=== PATIENT | male | born 1975 | race Caucasian/White ===

== ENCOUNTER 2021-06-26 00:14 | Inpatient (IN) ==
[2021-06-26 00:47] LABS: Appearance Urine Clear (Clear); Bacteria Urine Automated Negative (Negative); Bilirubin Urine Negative (Negative); Blood Urine Negative (Negative); Color Urine Dark Yellow; Epithelial Cell Urine Auto >30 /lpf (0-5); Glucose Urine UA Negative (Negative); Ketones Urine Trace (Negative); Leukocyte Esterase Urine Negative (Negative); Nitrite Urine Negative (Negative); Protein Urine Trace (Negative); RBC Urine Automated 0-4 /hpf (0-4); Specific Gravity Urine 1.031 (1.000-1.030); Urobilinogen Urine Negative (Negative)
[2021-06-26 00:56] LABS: Basophils # (auto) 0.04 K/uL (0-0.2); Basophils % (auto) 0.3 %; Eosinophils # (auto) 0.13 K/uL (0-0.5); Eosinophils % (auto) 0.9 %; Hematocrit (blood only) 50.3 % (42-52); Hemoglobin 15.8 g/dL (14.0-18.0); Immature Granulocytes # (auto) 0.05 K/uL (0.00-0.02); Immature Granulocytes % (auto) 0.4 %; Lymphocytes # (auto) 3.51 K/uL (1.2-3.4); Lymphocytes % (auto) 25.2 %; Mean Corpuscular Hemoglobin 27.4 pg (25-34); Mean Corpuscular Hgb Conc 31.4 g/dL (32-36); Mean Corpuscular Volume 87.2 fL (80-100); Monocytes # (auto) 1.06 K/uL (0.11-0.59); Monocytes % (auto) 7.6 %; Neutrophils # (auto) 9.16 K/uL (1.4-6.5); Neutrophils % (auto) 65.6 %; Platelet Count 371 K/uL (130-400); RDW Coefficient of Variation 14.7 % (11.5-14.5); RDW Standard Deviation 46.9 fL (36.4-46.3); Red Blood Count 5.77 M/uL (4.7-6.1); White Blood Count 13.95 K/uL (4.8-10.8)
[2021-06-26 01:06] LABS: Amphetamines+Metham, Urine Neg (Neg); Barbiturates, Urine Neg (Neg); Benzodiazepine, Urine Neg (Neg); Cocaine, Urine Neg (Neg); MDMA (Ecstacy), Urine Neg (Neg); Methadone, Urine Neg (Neg); Opiate, Urine Neg (Neg); Phencyclidine, Urine Neg (Neg)
[2021-06-26 01:15] LABS: Albumin Level 4.2 gm/dl (3.4-5.0); BUN Creatinine Ratio 15.8 (10-20); Calcium 9.2 mg/dl (8.5-10.1); Creatinine Clr Calc Pharmacy 93.3 ml/min; Est GFR (African American) 69.2 ml/min; Est GFR (Non-African American) 59.7 ml/min; Potassium 3.7 mmol/L (3.5-5.1)
[2021-06-26 01:26] LABS: Bilirubin,Total 0.5 mg/dl (0.2-1); Globulin 4.3 gm/dl (2.5-4.0); Thyroid Stimulating Hormone 4.48 uIu/ml (0.300-4.500); Total Protein 8.5 gm/dl (6.4-8.2)
[2021-06-26 01:33] LABS: Acetaminophen < 2 ug/ml (10-30); Salicylate < 1.7 mg/dl (2.8-20)
[2021-06-26] MEDS: OLANZapine ZYDIS 5 MG ORALLY DIS. TAB PO SCH (04:11)
--- NOTE | 2021-06-26 06:52 | Emergency Department Note ---
History of Present Illness General Chief complaint: Mental Health Evaluation Stated complaint: 302 Time Seen by Provider: 06/26/21 01:09 Source: patient, RN notes reviewed and police Mode of arrival: other (police) Limitations: no limitations History of Present Illness Provider complaint: MHMR This patient is a 45-year-old male who presents to the emergency department with police after being found lying in several yards. The patient states he was "resting his body" after walking over mountains and [place] in an attempt to anger God. He states God promised him that he would find the woman that he would when he went to the front of the [employer]. This did not occur. Patient apparently drove here from [place], ran out of gas and money. He signed over his car and gave the keys to the gas welder. Patient states he is "genetically related to the data processing equipment repairer of the [employer]" because his " grandmother's last name was Dwayne." When asked if the patient felt that he may hurt the mental nights, he stated "no I would be honored to be a part of them." He speaks of the beautiful horses and buggies. Patient states he was in search of the [employer] and feels he was on his admission this direction to accomplish the mission that God had sent him on. The patient denies any significant pain. He states he used to have a herniated disc in his back but he healed that by praying. He states his heels hurt a bit because of all of the walking he did "over [place] and [place]." Patient denies any alcohol or substance abuse. Home Medications Medication Instructions Recorded Confirmed Type No Known Home Medications 06/26/21 06/26/21 History Allergies Allergy/AdvReac Type Severity Reaction Status Date / Time banana AdvReac Mild Abdominal Verified 06/26/21 00:58 Pain Past Med/Surg History Medical History (Updated 06/26/21 @ 07:05 by Kendra Vazquez MD) Schizophrenia Social History Smoking Status: Current every day smoker Preferred Language: Tajik Feels Safe at Home: Yes and No Review of Systems Unobtainable due to mental health condition (Patient is tangential and history/review of systems is unreliable. Refer to HPI) Physical Exam Vital Signs Vital Signs - 24 hr 06/26/21 00:16 06/26/21 01:17 Temperature 36.5 C Temperature Source Oral Pulse Rate 85 Pulse Rate [Right Finger] 78 Respiratory Rate 18 16 Respiratory Effort / Characteristics Non-Labored Respiratory Depth Normal Blood Pressure 197/108 H Blood Pressure [Left Arm] 126/71 Blood Pressure Mean 137 Blood Pressure Mean [Left Arm] 89 Blood Pressure Position Sitting Pulse Oximetry 97 96 Oxygen Delivery Method Room Air Room Air Sepsis Recent Fever Within 48 Hours No Sepsis New/Unexplained Change in Mental Status N/A Sepsis Action Taken by Nursing No Action Required Vital signs reviewed. General: Well-appearing 45-year-old male, in no significant distress. HEENT: No scleral icterus, PERRLA, neck supple. Atraumatic. Cardiovascular: Regular rate and rhythm, no extra sounds. Pulmonary: Clear to auscultation bilaterally, normal work of breathing. Abdomen: Soft, obese, nontender, nondistended, positive bowel sounds. Musculoskeletal: Atraumatic, no peripheral edema. Calluses noted to the bilateral feet Neurologic: Patient awake alert and answers most questions, but is unable to give a focused answer. Moves all 4 extremities equally. Cranial nerves II through XII are grossly intact. Speech is clear. Psych: Negative HI, negative SI Skin: Warm, dry, no rash Course Administered Medications Olanzapine (Olanzapine Zydis 5 Mg Orally Dis. Tab) 5 mg PO HS RAUDEL Stop: 07/26/21 20:59 Last Admin: 06/26/21 04:11 Dose: 5 mg Documented by: [id number] Medical Decision Making Differential Diagnosis Mood disorder, infection, hypoglycemia, electrolyte abnormalities, cardiac sources, intracerebral event, toxicologic, trauma, neurologic, as well as other pathologies. Medical Records Attestation: I reviewed the patient's medical records. Home Medications Current Medication List: was personally reviewed by me Laboratory Data Attestation: I reviewed the patient's lab results. Result diagrams: 06/26/21 00:35 06/26/21 00:35 Lab Results 06/26/21 06/26/21 06/26/21 Range/Units 00:28 00:28 00:35 WBC 13.95 H (4.8-10.8) K/uL RBC 5.77 (4.7-6.1) M/uL Hgb 15.8 (14.0-18.0) g/dL Hct 50.3 (42-52) % MCV 87.2 (80-100) fL MCH 27.4 (25-34) pg MCHC 31.4 L (32-36) g/dL RDW Std Deviation 46.9 H (36.4-46.3) fL RDW Coeff of Carline 14.7 H (11.5-14.5) % Plt Count 371 (130-400) K/uL MPV 10.0 (7.4-10.4) fL Immature Gran % (Auto) 0.4 % Neut % (Auto) 65.6 % Lymph % (Auto) 25.2 % Converse % (Auto) 7.6 % Eos % (Auto) 0.9 % Baso % (Auto) 0.3 % Neut # (Auto) 9.16 H (1.4-6.5) K/uL Lymph # (Auto) 3.51 H (1.2-3.4) K/uL Converse # (Auto) 1.06 H (0.11-0.59) K/uL Eos # (Auto) 0.13 (0-0.5) K/uL Baso # (Auto) 0.04 (0-0.2) K/uL Immature Gran # (Auto) 0.05 H (0.00-0.02) K/uL Sodium (136-145) mmol/L Potassium (3.5-5.1) mmol/L Chloride (98-107) mmol/L Carbon Dioxide (21-32) mmol/L Anion Gap (3-11) BUN (7-18) mg/dl Creatinine (0.6-1.4) mg/dl Est Cr Clr Drug Dosing ml/min Est GFR ( Amer) ml/min Est GFR (Non-Af Amer) ml/min BUN/Creatinine Ratio (10-20) Glucose (70-99) mg/dl Calcium (8.5-10.1) mg/dl Total Bilirubin (0.2-1) mg/dl AST (15-37) U/L ALT (12-78) U/L Alkaline Phosphatase (45-117) U/L Total Creatine Kinase (39-308) U/L Total Protein (6.4-8.2) gm/dl Albumin (3.4-5.0) gm/dl Globulin (2.5-4.0) gm/dl Albumin/Globulin Ratio (0.9-2) TSH (0.300-4.500) uIu/ml Urine Color Dark Yellow Urine Appearance Clear (Clear) Urine pH 5.0 (4.5-7.5) Ur Specific Woodlyn 1.031 H (1.000-1.030) Urine Protein Trace H (Negative) Urine Glucose (UA) Negative (Negative) Urine Ketones Trace H (Negative) Urine Blood Negative (Negative) Urine Nitrite Negative (Negative) Urine Bilirubin Negative (Negative) Urine Urobilinogen Negative (Negative) Ur Leukocyte Esterase Negative (Negative) Urine WBC (Auto) 5-10 H (0-5) /hpf Urine RBC (Auto) 0-4 (0-4) /hpf U Hyaline Cast (Auto) 1-5 (0-5) /lpf U Epithel Cells (Auto) >30 H (0-5) /lpf Urine Bacteria (Auto) Negative (Negative) Salicylates (2.8-20) mg/dl Urine Opiates Screen Neg (Neg) Ur Methadone, Qual Neg (Neg) Acetaminophen (10-30) ug/ml Urine Barbiturates Neg (Neg) Ur Phencyclidine (PCP) Neg (Neg) U Amphetamin/Meth Scrn Neg (Neg) MDMA (Ecstasy) Screen Neg (Neg) U Benzodiazepines Scrn Neg (Neg) Ur Cocaine Metabolite Neg (Neg) U Marijuana (THC) Screen Neg (Neg) Ethyl Alcohol mg/dL (0-3) mg/dl COVID-19 Eval Order SARS-CoV-2, RNA, NAAT (NEGATIVE) 06/26/21 06/26/21 06/26/21 Range/Units 00:35 00:35 00:35 WBC (4.8-10.8) K/uL RBC (4.7-6.1) M/uL Hgb (14.0-18.0) g/dL Hct (42-52) % MCV (80-100) fL MCH (25-34) pg MCHC (32-36) g/dL RDW Std Deviation (36.4-46.3) fL RDW Coeff of Carline (11.5-14.5) % Plt Count (130-400) K/uL MPV (7.4-10.4) fL Immature Gran % (Auto) % Neut % (Auto) % Lymph % (Auto) % Converse % (Auto) % Eos % (Auto) % Baso % (Auto) % Neut # (Auto) (1.4-6.5) K/uL Lymph # (Auto) (1.2-3.4) K/uL Converse # (Auto) (0.11-0.59) K/uL Eos # (Auto) (0-0.5) K/uL Baso # (Auto) (0-0.2) K/uL Immature Gran # (Auto) (0.00-0.02) K/uL Sodium 140 (136-145) mmol/L Potassium 3.7 (3.5-5.1) mmol/L Chloride 108 H (98-107) mmol/L Carbon Dioxide 22 (21-32) mmol/L Anion Gap 10.0 (3-11) BUN 22 H (7-18) mg/dl Creatinine 1.41 H (0.6-1.4) mg/dl Est Cr Clr Drug Dosing 93.3 ml/min Est GFR ( Amer) 69.2 ml/min Est GFR (Non-Af Amer) 59.7 ml/min BUN/Creatinine Ratio 15.8 (10-20) Glucose 113 H (70-99) mg/dl Calcium 9.2 (8.5-10.1) mg/dl Total Bilirubin 0.5 (0.2-1) mg/dl AST 24 (15-37) U/L ALT 41 (12-78) U/L Alkaline Phosphatase 88 (45-117) U/L Total Creatine Kinase 430 H (39-308) U/L Total Protein 8.5 H (6.4-8.2) gm/dl Albumin 4.2 (3.4-5.0) gm/dl Globulin 4.3 H (2.5-4.0) gm/dl Albumin/Globulin Ratio 1.0 (0.9-2) TSH 4.480 (0.300-4.500) uIu/ml Urine Color Urine Appearance (Clear) Urine pH (4.5-7.5) Ur Specific Woodlyn (1.000-1.030) Urine Protein (Negative) Urine Glucose (UA) (Negative) Urine Ketones (Negative) Urine Blood (Negative) Urine Nitrite (Negative) Urine Bilirubin (Negative) Urine Urobilinogen (Negative) Ur Leukocyte Esterase (Negative) Urine WBC (Auto) (0-5) /hpf Urine RBC (Auto) (0-4) /hpf U Hyaline Cast (Auto) (0-5) /lpf U Epithel Cells (Auto) (0-5) /lpf Urine Bacteria (Auto) (Negative) Salicylates < 1.7 L (2.8-20) mg/dl Urine Opiates Screen (Neg) Ur Methadone, Qual (Neg) Acetaminophen < 2 L (10-30) ug/ml Urine Barbiturates (Neg) Ur Phencyclidine (PCP) (Neg) U Amphetamin/Meth Scrn (Neg) MDMA (Ecstasy) Screen (Neg) U Benzodiazepines Scrn (Neg) Ur Cocaine Metabolite (Neg) U Marijuana (THC) Screen (Neg) Ethyl Alcohol mg/dL < 3.0 (0-3) mg/dl COVID-19 Eval Order SARS-CoV-2, RNA, NAAT (NEGATIVE) 06/26/21 06/26/21 Range/Units 01:16 01:16 WBC (4.8-10.8) K/uL RBC (4.7-6.1) M/uL Hgb (14.0-18.0) g/dL Hct (42-52) % MCV (80-100) fL MCH (25-34) pg MCHC (32-36) g/dL RDW Std Deviation (36.4-46.3) fL RDW Coeff of Carline (11.5-14.5) % Plt Count (130-400) K/uL MPV (7.4-10.4) fL Immature Gran % (Auto) % Neut % (Auto) % Lymph % (Auto) % Converse % (Auto) % Eos % (Auto) % Baso % (Auto) % Neut # (Auto) (1.4-6.5) K/uL Lymph # (Auto) (1.2-3.4) K/uL Converse # (Auto) (0.11-0.59) K/uL Eos # (Auto) (0-0.5) K/uL Baso # (Auto) (0-0.2) K/uL Immature Gran # (Auto) (0.00-0.02) K/uL Sodium (136-145) mmol/L Potassium (3.5-5.1) mmol/L Chloride (98-107) mmol/L Carbon Dioxide (21-32) mmol/L Anion Gap (3-11) BUN (7-18) mg/dl Creatinine (0.6-1.4) mg/dl Est Cr Clr Drug Dosing ml/min Est GFR ( Amer) ml/min Est GFR (Non-Af Amer) ml/min BUN/Creatinine Ratio (10-20) Glucose (70-99) mg/dl Calcium (8.5-10.1) mg/dl Total Bilirubin (0.2-1) mg/dl AST (15-37) U/L ALT (12-78) U/L Alkaline Phosphatase (45-117) U/L Total Creatine Kinase (39-308) U/L Total Protein (6.4-8.2) gm/dl Albumin (3.4-5.0) gm/dl Globulin (2.5-4.0) gm/dl Albumin/Globulin Ratio (0.9-2) TSH (0.300-4.500) uIu/ml Urine Color Urine Appearance (Clear) Urine pH (4.5-7.5) Ur Specific Woodlyn (1.000-1.030) Urine Protein (Negative) Urine Glucose (UA) (Negative) Urine Ketones (Negative) Urine Blood (Negative) Urine Nitrite (Negative) Urine Bilirubin (Negative) Urine Urobilinogen (Negative) Ur Leukocyte Esterase (Negative) Urine WBC (Auto) (0-5) /hpf Urine RBC (Auto) (0-4) /hpf U Hyaline Cast (Auto) (0-5) /lpf U Epithel Cells (Auto) (0-5) /lpf Urine Bacteria (Auto) (Negative) Salicylates (2.8-20) mg/dl Urine Opiates Screen (Neg) Ur Methadone, Qual (Neg) Acetaminophen (10-30) ug/ml Urine Barbiturates (Neg) Ur Phencyclidine (PCP) (Neg) U Amphetamin/Meth Scrn (Neg) MDMA (Ecstasy) Screen (Neg) U Benzodiazepines Scrn (Neg) Ur Cocaine Metabolite (Neg) U Marijuana (THC) Screen (Neg) Ethyl Alcohol mg/dL (0-3) mg/dl COVID-19 Eval [facility] SARS-CoV-2, RNA, NAAT NEGATIVE (NEGATIVE) Blood Pressure Blood Pressure Findings: Normal blood pressure Blood Pressure Disposition: did not require urgent referral MDM Narrative This patient was evaluated and appeared to be in no significant distress. He was medically evaluated and WBC is mildly elevated. This is likely a stress reaction from a long night of walking. Patient's total CK is also slightly elevated but he does not meet criteria for rhabdomyolysis. Patient was given 5 mg of olanzapine ODT. He was sleeping comfortably and was cooperative. Patient is tolerating p.o. food and fluids. The patient is on a 302 warrant and will require inpatient psychiatric care. Case has been signed out to Dr. Rico at the change of shift awaiting final disposition. Impression & Plan Psychosis Discharge Plan Visit Data Chief Complaint: Mental Health Evaluation Stated Complaint: 302 ED Provider: Kendra Vazquez Discharge Problem: Psychosis Forms Stand Alone Forms: [facility], Suicide Prevention Resources Prescriptions Prescriptions: No Action No Known Home Medications RF: 0 Referrals Referrals: PCP,NO [Primary Care Provider] - Discharge Problem: Psychosis Qualifiers: Psychosis type: schizophrenia Schizophrenia type: unspecified Qualified Code(s): F20.9 - Schizophrenia, unspecified
--- NOTE | 2021-06-26 07:33 | Emergency Department Note ---
ED Visit Note This patient was signed to me by Dr. Vazquez at shift change. The patient had 302 petition that have been signed off and the patient been previously medically cleared. The patient has schizophrenia and was given Zyprexa overnight and was sleeping. When he woke up he was getting mildly agitated so I did order Zyprexa after discussing with the nurse. A couple hours later he was getting more agitated and apparently did not take the Zyprexa. The nurse tell me they could not get him to take medications. I did order Haldol 10 mg IM and Ativan 2 mg IM as I was concerned about he was trying to leave and seemed agitated. When they went to give him the meds the patient was asleep in bed and did not receive the meds. I checked on him multiple times after this and he remains asleep and noncombative. He will be signed out to Dr. Reddy as a bed search continues he may ultimately need medications for agitation if he gets agitated again. . : Psychosis Qualifiers: Psychosis type: schizophrenia Schizophrenia type: unspecified Qualified Code(s): F20.9 - Schizophrenia, unspecified
[2021-06-26] MEDS ORDERED: OLANZapine ZYDIS 5 MG ORALLY DIS. TAB PO STA (10:01)
[2021-06-26] MEDS ORDERED: LORazepam 2 MG/ML VIAL (IM USE) IM STA (12:52)
[2021-06-26] MEDS ORDERED: HALOPERIDOL LACTATE 5 MG/ML 1 ML VIAL IM STA (12:52)
--- NOTE | 2021-06-26 16:00 | Emergency Department Note ---
ED Visit Note Received this patient in signout. Previously seen last evening by Dr. Vazquez. Previous blood work was obtained. Patient rested here this morning evidently had several episodes of some agitation that self resolved and he is not required any medication over the last 6 to 8 hours. Patient is on a 302 and bed search continues. Bed search exhausted for the evening and signed out to the overnight doctor pending placement. Di not require additional medications this evening. . : Psychosis Qualifiers: Psychosis type: schizophrenia Schizophrenia type: unspecified Qualified Code(s): F20.9 - Schizophrenia, unspecified
--- NOTE | 2021-06-26 23:26 | Emergency Department Note ---
ED Visit Note This case was signed out to me at change of shift awaiting bed placement. The bed search was suspended. Patient was cooperative throughout the night. Bed search will resume in the morning. The case was signed out to Dr. Wang in the morning. . : Psychosis Qualifiers: Psychosis type: schizophrenia Schizophrenia type: unspecified Qualified Code(s): F20.9 - Schizophrenia, unspecified
--- NOTE | 2021-06-27 08:13 | Emergency Department Note ---
ED Visit Note ED Physician Sign Out Note: 45 yr old male with history schizophrenia with worsening psychosis not taking outpatient medications. Here on 302 warrant. Initially seen and cleared by Dr Vazquez. Signed out to me by Dr Fischer pending placement. Patient a bit agitated and I had long discussion to calm him down. Refused any medications though cooperative after discussion thus no need for chemical sedation during my care. Dr Suarez evaluated patient and agrees with need for inpatient psych management. Advised PRN Zyrexa and PRN Ativan meds be on chart. Patient signed out to Dr Lombardi pending placement. Pacheco Wang MD : Psychosis Qualifiers: Psychosis type: schizophrenia Schizophrenia type: unspecified Qualified Code(s): F20.9 - Schizophrenia, unspecified
[2021-06-27] MEDS ORDERED: LORazepam 1 MG TAB PO STA (08:37)
[2021-06-27] MEDS ORDERED: OLANZapine 10 MG TAB PO STA (08:37)
[2021-06-27] MEDS ORDERED: LORazepam 1 MG TAB PO PRN (14:27)
[2021-06-27] MEDS ORDERED: OLANZapine 10 MG TAB PO PRN (14:27)
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
[2021-06-27] MEDS ORDERED: CLOTRIMAZOLE 1% CR 15 GM TUBE EXT ONE (17:07)
[2021-06-27] MEDS: OLANZapine ZYDIS 5 MG ORALLY DIS. TAB PO SCH (20:33)
--- NOTE | 2021-06-27 23:06 | Emergency Department Note ---
ED Visit Note The patient was taken in signout from Felipe at the change of shift. The patient was seen initially by Dr. Vazquez. Please see that note for details. The patient was pending inpatient psychiatric placement for psychosis in the setting of past medical history of schizophrenia under a 302 with anticipated 303 on Wednesday if not placed by then. The patient was seen by [facility] [address]. psychiatry, Dr. Suarez and it was agreed that the patient does need inpatient admission and treatment. Appreciate recommendations for Zyprexa and Ativan, which were ordered. Patient was signed out to Dr. Fischer at change of shift. . . : Psychosis Qualifiers: Psychosis type: schizophrenia Schizophrenia type: unspecified Qualified Code(s): F20.9 - Schizophrenia, unspecified
--- NOTE | 2021-06-28 04:09 | Emergency Department Note ---
ED Visit Note This case was signed out to me at change of shift awaiting bed placement. The patient has rested throughout the night. The case was signed out to Dr. Reddy at change of shift. . : Psychosis Qualifiers: Psychosis type: schizophrenia Schizophrenia type: unspecified Qualified Code(s): F20.9 - Schizophrenia, unspecified
--- NOTE | 2021-06-28 07:37 | Emergency Department Note ---
ED Visit Note Received this patient in signout. He has unfortunately been here several days awaiting psychiatric inpatient bed. Was seen by psychiatry in consultation however and some standing medications of been ordered. Bed search has been continued as the patient is on a 302. Signed out pending bed placement at this time at the end of my shift. . : Psychosis Qualifiers: Psychosis type: schizophrenia Schizophrenia type: unspecified Qualified Code(s): F20.9 - Schizophrenia, unspecified
--- NOTE | 2021-06-28 15:00 | Psychiatric Progress Note ---
Date of Service June 28, 2021 Impression / Recommendations Impression This is a 45-year-old male with a history of schizoaffective illness who presents in a currently psychotic state. Case is complicated by patient's lack of insight as well as refusal to take medications. Patient will require inpatient psychiatric hospitalization for purposes of safety, stabilization, and medication management. (1) Psychosis: Although patient is refusing medications at this moment, it is advisable to make medications available to patient should he choose to change his mind. Zyprexa 10 mg p.o. 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 Subjective Subjective Patient was seen & assessed and interval progress reviewed with treatment team Patient continues to be psychotic although remains in good behavioral control. At this time patient's insight remains minimal as he is refusing to acknowledge his diagnosis or his need for medications. Patient has not taken any medications since arrival. He is able to eat his meals and make his needs known. I spent 30 minutes with the patient, 50% of which was dedicated to counselling and coordination of care. Physical Exam Psychiatric A+Ox3, euthymic affect Orientation: alert, oriented to person, oriented to place and + guarded Apperance: + disheveled Eye Contact: + poor eye contact Motor Behavior: no abnormal motor movements Speech: + pressured speech Affect: + flat affect and + labile affect Mood: + anxious mood and + irritable mood Thought Process: + circumstantial thought process, + tangential thought process, + flight of ideas, + looseness of associations, + perseveration and + confabulations Thought Content: + preoccupation, + obsessions, + paranoid, + cognitive distortions, + delusions, + ideas of reference, + thought insertion, + thought broadcasting, + persecution and + loneliness Suicidal Thoughts: + reports suicidal thoughts Homicidal Thoughts: denies homicidal thoughts Hallucinations: + auditory hallucinations Cognition: recent memory grossly intact Estimated Intelligence: average estimated intelligence Insight: + poor insight Judgement: + poor judgement Vital Signs (Past 24 Hours) Last Vital Signs Temp 36.5 C 06/26/21 00:16 Pulse 74 06/28/21 11:11 Resp 16 06/28/21 11:11 BP 128/80 06/28/21 11:11 Pulse Ox 100 06/28/21 11:11 Results & Data ([facility]) Current Inpatient Medications Current Inpatient Medications: Current Inpatient Medications Lorazepam (Lorazepam 1 Mg Tab) 1 mg PO TID PRN PRN Reason: Agitation Stop: 07/27/21 14:26 Olanzapine (Olanzapine Zydis 5 Mg Orally Dis. Tab) 5 mg PO HS RAUDEL Stop: 07/26/21 20:59 Last Admin: 06/27/21 20:33 Dose: Not Given Documented by: Olanzapine (Olanzapine 10 Mg Tab) 10 mg PO BID PRN PRN Reason: Agitation Stop: 07/27/21 20:59 Mental Health & Subst Abuse Tx Therapist Name of Therapist: None Railroad Shop Inspector Name of Railroad Shop Inspector: None Post Discharge Appointments Primary Care Physician Name Of Family Doctor: None (1) Psychosis Psychosis type: schizophrenia Schizophrenia type: unspecified Qualified Code(s): F20.9 - Schizophrenia, unspecified
--- NOTE | 2021-06-28 16:01 | Emergency Department Note ---
ED Visit Note 1530: Signout from Dr. Reddy. 45-year-old male with schizoaffective disorder. Patient presents paranoid wanting to live with [facility]. Psychiatry on consult. 223: Case signed out to Dr. Hung. Awaiting psychiatric placement. . : Psychosis Qualifiers: Psychosis type: schizophrenia Schizophrenia type: unspecified Qualified Code(s): F20.9 - Schizophrenia, unspecified
[2021-06-28] MEDS: OLANZapine ZYDIS 5 MG ORALLY DIS. TAB PO SCH (22:27)
--- NOTE | 2021-06-29 02:36 | Emergency Department Note ---
ED Visit Note The patient was signed out to me at change of shift awaiting bed placement. The patient complained of a rash on his foot which appears to be athlete's foot. Nursing staff applied cream to the foot. Patient rested through the night. The case will be signed out to Dr. Reddy in the morning. . : Psychosis Qualifiers: Psychosis type: schizophrenia Schizophrenia type: unspecified Qualified Code(s): F20.9 - Schizophrenia, unspecified
--- NOTE | 2021-06-29 08:00 | Emergency Department Note ---
ED Visit Note Received this patient in signout. He is unfortunately been here for several days awaiting an inpatient psychiatric bed. Seen by psychiatry here in the ER. Bed search continues for inpatient psychiatric bed on an involuntary basis. Unsuccessful so far today. Signed out at the end of my shift to Dr. Barbosa. . : Psychosis Qualifiers: Psychosis type: schizophrenia Schizophrenia type: unspecified Qualified Code(s): F20.9 - Schizophrenia, unspecified
--- NOTE | 2021-06-29 15:11 | Psychiatric Progress Note ---
Date of Service June 29, 2021 Impression / Recommendations Impression This is a 45-year-old male with a history of schizoaffective illness who presents in a currently psychotic state. Case is complicated by patient's lack of insight as well as refusal to take medications. Patient will require inpatient psychiatric hospitalization for purposes of safety, stabilization, and medication management. (1) Psychosis: Although patient is refusing medications at this moment, it is advisable to make medications available to patient should he choose to change his mind. Zyprexa 10 mg p.o. 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 Subjective Subjective Patient was seen & assessed and interval progress reviewed with treatment team Patient continues to display very poor insight. Refused to acknowledge schizophrenia illness despite multiple hospitalizations in the past. He remains in good behavioral control despite his psychosis. Is seen eating and sleeping well. I spent 30 minutes with the patient, 50% of which was dedicated to counselling and coordination of care. Physical Exam Psychiatric A+Ox3, euthymic affect Orientation: alert, oriented to person, oriented to place and + guarded Apperance: + disheveled Eye Contact: + poor eye contact Motor Behavior: no abnormal motor movements Speech: + pressured speech Affect: + flat affect and + labile affect Mood: + anxious mood and + irritable mood Thought Process: + circumstantial thought process, + tangential thought process, + flight of ideas, + looseness of associations, + perseveration and + confabulations Thought Content: + preoccupation, + obsessions, + paranoid, + cognitive distort ions, + delusions, + ideas of reference, + thought insertion, + thought broadcasting, + persecution and + loneliness Suicidal Thoughts: + reports suicidal thoughts Homicidal Thoughts: denies homicidal thoughts Hallucinations: + auditory hallucinations Cognition: recent memory grossly intact Estimated Intelligence: average estimated intelligence Insight: + poor insight Judgement: + poor judgement Vital Signs (Past 24 Hours) Last Vital Signs Temp 36.5 C 06/26/21 00:16 Pulse 68 06/29/21 09:07 Resp 18 06/29/21 09:07 BP 168/98 H 06/29/21 09:07 Pulse Ox 98 06/29/21 09:07 Results & Data ([facility]) Current Inpatient Medications Current Inpatient Medications: Current Inpatient Medications Lorazepam (Lorazepam 1 Mg Tab) 1 mg PO TID PRN PRN Reason: Agitation Stop: 07/27/21 14:26 Olanzapine (Olanzapine Zydis 5 Mg Orally Dis. Tab) 5 mg PO HS RAUDEL Stop: 07/26/21 20:59 Last Admin: 06/28/21 22:27 Dose: Not Given Documented by: Olanzapine (Olanzapine 10 Mg Tab) 10 mg PO BID PRN PRN Reason: Agitation Stop: 07/27/21 20:59 Mental Health & Subst Abuse Tx Therapist Name of Therapist: None Solar Power Installer Name of Solar Power Installer: None Post Discharge Appointments Primary Care Physician Name Of Family Doctor: None (1) Psychosis Psychosis type: schizophrenia Schizophrenia type: unspecified Qualified Code(s): F20.9 - Schizophrenia, unspecified
--- NOTE | 2021-06-29 15:48 | Emergency Department Note ---
ED Visit Note 1545: Sign out from Dr. Reddy. 45-year-old male with schizoaffective disorder. Patient presents paranoid wanting to live with [facility]. Psychiatry on consult. 0004: He signed out to Dr. Oneyda Tay awaiting psychiatric placement. . : Psychosis Qualifiers: Psychosis type: schizophrenia Schizophrenia type: unspecified Qualified Code(s): F20.9 - Schizophrenia, unspecified
[2021-06-29] MEDS: OLANZapine ZYDIS 5 MG ORALLY DIS. TAB PO SCH (21:00)
--- NOTE | 2021-06-30 08:24 | Emergency Department Note ---
ED Visit Note The case was signed out to me at change of shift. The patient was cooperative throughout the night and rested. The ED psychiatric pillowcase folder states they will move forward with plans for 303 hearing. The case will be signed out to Dr. Durant at change of shift. . : Psychosis Qualifiers: Psychosis type: schizophrenia Schizophrenia type: unspecified Qualified Code(s): F20.9 - Schizophrenia, unspecified
--- NOTE | 2021-06-30 14:12 | Emergency Department Note ---
ED Visit Note 1410: sign out from Dr. Durant. 45-year-old male with schizoaffective disorder. Patient presents paranoid wanting to live with [facility]. Psychiatry on consult. 2311: Case signed out to Dr. Vazquez. Awaiting psychiatric placement . : Psychosis Qualifiers: Psychosis type: schizophrenia Schizophrenia type: unspecified Qualified Code(s): F20.9 - Schizophrenia, unspecified
--- NOTE | 2021-06-30 15:03 | Psychiatric Progress Note ---
Date of Service June 30, 2021 Impression / Recommendations Impression This is a 45-year-old male with a history of schizoaffective illness who presents in a currently psychotic state. Case is complicated by patient's lack of insight as well as refusal to take medications. Patient will require inpatient psychiatric hospitalization for purposes of safety, stabilization, and medication management. (1) Psychosis: Although patient is refusing medications at this moment, it is advisable to make medications available to patient should he choose to change his mind. Zyprexa 10 mg p.o. 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 Subjective Subjective Patient was seen & assessed and interval progress reviewed with treatment team Patient continues to maintain that he does not require psychiatric treatment. Continues to refuse psychiatric medication. Is eating and sleeping well. This morning he endorsed auditory command hallucinations. He went on to state that he heard the voice of God tell him that he would be" leaving this room soon." He was informed of the court hearing for extended commitment to which he raised no objections, but continue to maintain that he is not psychotic. Physical Exam Psychiatric A+Ox3, euthymic affect Orientation: alert, oriented to person, oriented to place and + guarded Apperance: + disheveled Eye Contact: + poor eye contact Motor Behavior: no abnormal motor movements Speech: + pressured speech Affect: + flat affect and + labile affect Mood: + anxious mood and + irritable mood Thought Process: + circumstantial thought process, + tangential thought process, + flight of ideas, + looseness of associations, + perseveration and + confabulations Thought Content: + preoccupation, + obsessions, + paranoid, + cognitive distortions, + delusions, + ideas of reference, + thought insertion, + thought broadcasting, + persecution and + loneliness Suicidal Thoughts: + reports suicidal thoughts Homicidal Thoughts: denies homicidal thoughts Hallucinations: + auditory hallucinations Cognition: recent memory grossly intact Estimated Intelligence: average estimated intelligence Insight: + poor insight Judgement: + poor judgement Vital Signs (Past 24 Hours) Last Vital Signs Temp 36.5 C 06/26/21 00:16 Pulse 68 06/30/21 10:45 Resp 20 09/27/21 10:45 BP 165/107 H 06/30/21 10:45 Pulse Ox 99 06/30/21 10:45 Results & Data ([facility]) Current Inpatient Medications Current Inpatient Medications: Current Inpatient Medications Lorazepam (Lorazepam 1 Mg Tab) 1 mg PO TID PRN PRN Reason: Agitation Stop: 07/27/21 14:26 Olanzapine (Olanzapine Zydis 5 Mg Orally Dis. Tab) 5 mg PO HS RAUDEL Stop: 07/26/21 20:59 Last Admin: 06/29/21 21:00 Dose: Not Given Documented by: Olanzapine (Olanzapine 10 Mg Tab) 10 mg PO BID PRN PRN Reason: Agitation Stop: 07/27/21 20:59 Mental Health & Subst Abuse Tx Therapist Name of Therapist: None Audit Associate Name of Audit Associate: None Post Discharge Appointments Primary Care Physician Name Of Family Doctor: None (1) Psychosis Psychosis type: schizophrenia Schizophrenia type: unspecified Qualified Code(s): F20.9 - Schizophrenia, unspecified
[2021-06-30] MEDS ORDERED: ACETAMINOPHEN 325 MG TAB PO PRN (18:42)
[2021-06-30] MEDS ORDERED: MAGNESIUM HYDROXIDE SUSP 30 ML UDC PO PRN (18:42)
[2021-06-30] MEDS ORDERED: SODIUM CHLORIDE 0.65% NA SOLN 45 ML (OCEAN) PRN (18:42)
[2021-06-30] MEDS ORDERED: ALUMINUM/MAGNESIUM SUSP 30 ML UDC PO PRN (18:42)
[2021-06-30] MEDS ORDERED: hydrOXYzine HCl 25 MG TAB PO PRN ×2 (18:42)
[2021-06-30] MEDS ORDERED: BISMUTH SUBSALICYLATE LIQD 236 ML PO PRN (18:42)
[2021-07-01] MEDS ORDERED: diazePAM 5 MG TABLET PO PRN (11:37)
[2021-07-01] MEDS ORDERED: BISMUTH SUBSALICYLATE LIQD 236 ML PO PRN (11:40)
[2021-07-01] MEDS ORDERED: ALUMINUM/MAGNESIUM SUSP 30 ML UDC PO PRN (11:40)
[2021-07-01] MEDS ORDERED: ACETAMINOPHEN 325 MG TAB PO PRN (11:40)
[2021-07-01] MEDS ORDERED: OLANZapine 10 MG TAB PO PRN (11:40)
[2021-07-01] MEDS ORDERED: MAGNESIUM HYDROXIDE SUSP 30 ML UDC PO PRN (11:41)
[2021-07-01] MEDS ORDERED: SODIUM CHLORIDE 0.65% NA SOLN 45 ML (OCEAN) PRN (11:41)
[2021-07-01] MEDS ORDERED: hydrOXYzine HCl 25 MG TAB PO PRN ×2 (11:41)
[2021-07-01] MEDS ORDERED: NEOMYCIN/POLYMYX/BACITR OINT 15 GM TUBE EXT PRN (11:42)
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
[2021-07-01] MEDS: OLANZapine 10 MG TAB PO SCH (20:48)
[2021-07-02] MEDS: OLANZapine 10 MG TAB PO SCH ×2 (09:43→20:53)
--- NOTE | 2021-07-02 13:04 | Progress Note ---
Date of Service July 02, 2021 Patient seen at request of Dr. Suarez for second opinion for medication over objection. Assessment & Plan (1) Psychosis: Plan: Medications over objection is a complex decision in a patient who's judgement is impacted by his lack of insight into his illness, but also is organized enough to clearly voice his wishes with regards to medication. He is attending to his ADLs within the unit routine and hasn't exhibited agitation to the level of requiring IMs despite several days of confinement. He was only transitioned from the ED to the therapeutic milieu 06/30/21 in PM. Reviewed with patient that I agree with Dr. Suarez that he would benefit from antipsychotic medication and is unlikely to improve without it. He maintains that he prefers feeling closer to God and wants to decline based on episcopalian purposes (wanting to become Mennonite) which would not preclude medication. I have significant concerns about his behavior in the community that led up to his hospitalization as wandering by the road at night could have resulted in injury and there is currently no collateral information re: his past charges or psychiatric treatment. Just after meeting with me, he became loud and more paranoid, accusatory toward staff and reportedly made a comment in group that upset peers, something vague like "I'm going to tear this place up". He did respond to verbal deescalation but clearly is not able to engage in treatment and safety planning (even unrelated to medication). He is refusing releases so means to get additional information re: past trials/response and there is past aggression by his report. In my opinion he will decompensate readily outside of the hospital resulting in or further significant injury within the next 30 days, particularly if challenged on his delusions. He has already shown inability to care for self outside of the hospital due to his mental illness and without medication, his medical decision making and ability to care for self will not be restored. He has shown no improvement in psychosis or insight with other interventions and I would support medications over objection if treatment team desires to proceed based on ongoing psychosis or emergent agitation. Psychosis type: schizophrenia Schizophrenia type: unspecified Qualified Code(s): F20.9 - Schizophrenia, unspecified Admission and Anticipated Discharge Date Admission Date: June 30, 2021 Subjective Patient spent several days in the ED until a bed became available on 3S, refused medication during that time and states it was "horrible as I've been in solitary before", apparently referring to past incarceration (reportedly remote, unclear circumstances around terroristic threats and stalking). He was picked up by police for wandering and lying down in someone's yard and recalls handing over his car to a convenience store employee. He states he was hiking in [place] at the direction of God and that he speaks with Ebenezer and "the holy darren" regularly. They send him "funny thoughts" like an intrussive image of his brother using "the dildo I got for my dad as a birthday gag". His parents are and hasn't had contact with his brother for more than a decade. States his brother is evil and that left [place] because it's "a terrible place to live" and wants to become a Mennonite and do farm chores to support himself. On the unit he has been attending groups without incident. Remains delusional but no agitation and no threats to harm self or others. He is eating and repeatedly refuses antipsychotic medication because "I have rights and I don't have a mental health issue". Review of Systems Review of Systems: All systems reviewed & are unremarkable except as noted in HPI & below Physical Exam Psychiatric: Orientation: alert and oriented x 3 Apperance: appropriately dressed and appropriately groomed Eye Contact: + fair eye contact Motor Behavior: steady gait and station and no abnormal motor movements Speech: normal rate/rhythm/volume of speech Affect: + constricted affect Mood: + depressed mood ("because I'm being held against my will") Thought Process: + tangential thought process Thought Content: + delusions Suicidal Thoughts: denies suicidal thoughts Homicidal Thoughts: denies homicidal thoughts Hallucinations: no auditory hallucinations and no visual hallucinations Cognition: language grossly intact Estimated Intelligence: consistent with education level Insight: + severely impaired insight Judgement: + severely impaired judgement Results & Data ([facility]) Vital Signs (Past 12 Hours) Vital Signs Temp Pulse Resp BP 07/02/21 06:35 76 150/96 H 07/02/21 06:34 36.5 C 88 18 146/88 H
--- NOTE | 2021-07-02 16:31 | Psychiatric Progress Note ---
Date of Service July 02, 2021 Impression / Recommendations Impression This is a 45-year-old male who is acutely psychotic likely secondary to medication noncompliance. Patient is unwilling to admit that his mental illness is contributing to his current presentation, and even go so further assess that he is no longer mentally ill. Patient with very little insight and currently resistant to taking medications. We will continue to offer medications at this time and seek out a second opinion if necessary. Patient will continue to require inpatient hospitalization for purposes of safety, stabilization, and medication management. No progress made thus far. (1) Psychosis: Medications over objection is a complex decision in a patient who's judgement is impacted by his lack of insight into his illness, but also is organized enough to clearly voice his wishes with regards to medication. He is attending to his ADLs within the unit routine and hasn't exhibited agitation to the level of requiring IMs despite several days of confinement. He was only transitioned from the ED to the therapeutic milieu 06/30/21 in PM. Reviewed with patient that I agree with Dr. Suarez that he would benefit from antipsychotic medication and is unlikely to improve without it. He maintains that he prefers feeling closer to God and wants to decline based on catholic purposes (wanting to become Mennonite) which would not preclude medication. I have significant concerns about his behavior in the community that led up to his hospitalization as wandering by the road at night could have resulted in injury and there is currently no collateral information re: his past charges or psychiatric treatment. Just after meeting with me, he became loud and more paranoid, accusatory toward staff and reportedly made a comment in group that upset peers, something vague like "I'm going to tear this place up". He did respond to verbal deescalation but clearly is not able to engage in treatment and safety planning (even unrelated to medication). He is refusing releases so means to get additional information re: past trials/response and there is past aggression by his report. In my opinion he will decompensate readily outside of the hospital resulting in or further significant injury within the next 30 days, particularly if challenged on his delusions. He has already shown inability to care for self outside of the hospital due to his mental illness and without medication, his medical decision making and ability to care for self will not be restored. He has shown no improvement in psychosis or insight with other interventions and I would support medications over objection if treatment team desires to proceed based on ongoing psychosis or emergent agitation. We will continue to observe patient and encourage p.o. medications. There will be a low threshold to medic patient if he begins to become behaviorally dysregulated or show increasing signs of psychosis. 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 Review of Systems Sleep Information Total Hours of Sleep: 7.25 Sleep Comments: pt on q-15 minute checks Meal Information Percent Meal Consumed - Breakfast: 100 Percent Meal Consumed - Lunch: 100 Percent Meal Consumed - Dinner: 75 Subjective Subjective Patient was seen & assessed and interval progress reviewed with treatment team nursing and social work Patient continues to voice psychotic delusions. Despite this he remains in somewhat good behavioral control. Today a second psychiatrist came in to provide opinion for medication over objection, which aggravated the patient and caused him to act out somewhat. He was seen pacing the day room making dis paraging comments. He then returned to his room and went to sleep. He is otherwise eating, sleeping and maintaining his ADLs including showering and making his needs known. No IM medications given today, no improvement in patient's condition. I spent 30 minutes with the patient, 50% of which was dedicated to counselling and coordination of care. Physical Exam Psychiatric A+Ox3, euthymic affect Orientation: alert, oriented x 3, oriented to person, oriented to place and + guarded Apperance: appropriately dressed, appropriately groomed and + disheveled Eye Contact: + fair eye contact and + poor eye contact Motor Behavior: steady gait and station and no abnormal motor movements Speech: + pressured speech and normal rate/rhythm/volume of speech Affect: + flat affect, + labile affect and + constricted affect Mood: + depressed mood ("because I'm being held against my will"), + anxious mood and + irritable mood Thought Process: + circumstantial thought process, + tangential thought process, + flight of ideas, + looseness of associations, + perseveration and + confabulations Thought Content: + preoccupation, + obsessions, + paranoid, + cognitive distortions, + delusions, + ideas of reference, + thought insertion, + thought broadcasting, + persecution and + loneliness Suicidal Thoughts: denies suicidal thoughts Homicidal Thoughts: denies homicidal thoughts Hallucinations: no auditory hallucinations and no visual hallucinations Cognition: recent memory grossly intact and language grossly intact Estimated Intelligence: average estimated intelligence and consistent with education level Insight: + poor insight and + severely impaired insight Judgement: + poor judgement and + severely impaired judgement Vital Signs (Past 24 Hours) Last Vital Signs Temp 36.5 C 07/02/21 06:34 Pulse 76 07/02/21 06:35 Resp 18 07/02/21 06:34 BP 150/96 H 07/02/21 06:35 Pulse Ox 98 07/01/21 11:22 Results & Data ([facility]) Current Inpatient Medications Current Inpatient Medications: Current Inpatient Medications Acetaminophen (Acetaminophen 325 Mg Tab) 650 mg PO Q4H PRN PRN Reason: Headache or Minor Fever Stop: 07/31/21 11:39 Al Hydrox/Mg Hydrox/Simethicone (Aluminum/Magnesium Susp 30 Ml Udc) 30 ml PO Q4H PRN PRN Reason: GI Upset Stop: 07/31/21 11:39 Bismuth Subsalicylate (Bismuth Subsalicylate Liqd 236 Ml) 15 ml PO PRN PRN PRN Reason: Loose Stool Stop: 07/31/21 11:39 Diazepam (Diazepam 5 Mg Tablet) 5 mg PO BID PRN PRN Reason: Anxiety/Agitation Stop: 07/31/21 11:36 Hydroxyzine HCl (Hydroxyzine Hcl 25 Mg Tab) 50 mg PO HSZ PRN PRN Reason: Insomnia Stop: 07/31/21 11:40 Hydroxyzine HCl (Hydroxyzine Hcl 25 Mg Tab) 25 mg PO Q4H PRN PRN Reason: Anxiety Stop: 07/31/21 11:40 Magnesium Hydroxide (Magnesium Hydroxide Susp 30 Ml Udc) 30 ml PO DAILY PRN PRN Reason: Constipation Stop: 07/31/21 11:40 Neomycin/Polymyxin/Bacitracin (Neomycin/Polymyx/Bacitr Oint 15 Gm Tube) 1 appln EXT BID PRN PRN Reason: foot rash Stop: 07/31/21 11:41 Olanzapine (Olanzapine 10 Mg Tab) 10 mg PO BID RAUDEL Stop: 07/31/21 20:59 Last Admin: 07/02/21 09:43 Dose: Not Given Documented by: Sodium Chloride (Sodium Chloride 0.65% Na Soln 45 Ml ([place])) 1 - 2 sprays NA PRN PRN PRN Reason: Nasal Dryness/Congestion Stop: 07/31/21 11:40 Mental Health & Subst Abuse Tx Therapist Name of Therapist: None Electrical Integrator Name of Electrical Integrator: None Post Discharge Appointments Primary Care Physician Name Of Family Doctor: None (1) Psychosis Psychosis type: schizophrenia Schizophrenia type: unspecified Qualified Code(s): F20.9 - Schizophrenia, unspecified
[2021-07-03] MEDS: OLANZapine 10 MG TAB PO SCH ×2 (09:00→20:29)
--- NOTE | 2021-07-03 13:15 | Psychiatric Progress Note ---
Date of Service July 03, 2021 Impression / Recommendations Impression This is a 45-year-old male who presented to the emergency department and was thought to be psychotic. Despite patient's yazidi delusions, he has shown no evidence of other psychotic behavior and has remained in good behavioral control. We will start safety planning the patient home. (1) Psychosis: We will safety plan this patient, as he is refusing to take medications, and medications over objection seem unnecessary at this time given his calm demeanor, lack of homicidal or suicidal ideation, the fact that he has remained in good behavioral control for several days despite being held against as well. 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 Review of Systems Sleep Information Total Hours of Sleep: 3.75 Sleep Comments: Woke around 0400, unable to go back to sleep Meal Information Percent Meal Consumed - Breakfast: 100 Percent Meal Consumed - Lunch: 100 Percent Meal Consumed - Dinner: 100 Subjective Subjective Patient was seen & assessed and interval progress reviewed with treatment team nursing and social work Patient has now been observed for several days and continues to be in good behavioral control without any acts of aggression or behavioral dysregulation. He has continued to voice his desire to leave the hospital and continue on with a yazidi life. Furthermore he has been eating and sleeping well without issue and continues to make his needs known. He continues to deny any homicidal or suicidal ideation. Deck Supervisor had a long discussion with patient on how he feels that mental health is potentially negatively impacting his life and that mental health services will be available to him 26/04 if needed. Patient was also instructed to come back to the emergency room if he were to feel like hurting himself or others or to become more disorganized with his thoughts. Patient is in agreement. We will start safety planning at this time. I spent 30 minutes with the patient, 50% of which was dedicated to counselling and coordination of care. Physical Exam Psychiatric A+Ox3, euthymic affect Orientation: alert, oriented x 3, oriented to person, oriented to place and + guarded Apperance: appropriately dressed, appropriately groomed and + disheveled Eye Contact: + fair eye contact and + poor eye contact Motor Behavior: steady gait and station and no abnormal motor movements Speech: + pressured speech and normal rate/rhythm/volume of speech Affect: + flat affect, + labile affect and + constricted affect Mood: + depressed mood ("because I'm being held against my will"), + anxious mood and + irritable mood Thought Process: + circumstantial thought process, + tangential thought process, + flight of ideas, + looseness of associations, + perseveration and + confabulations Thought Content: + preoccupation, + obsessions, + paranoid, + cognitive disto rtions, + delusions, + ideas of reference, + thought insertion, + thought broadcasting, + persecution and + loneliness Suicidal Thoughts: denies suicidal thoughts Homicidal Thoughts: denies homicidal thoughts Hallucinations: no auditory hallucinations and no visual hallucinations Cognition: recent memory grossly intact and language grossly intact Estimated Intelligence: average estimated intelligence and consistent with education level Insight: + poor insight and + severely impaired insight Judgement: + poor judgement and + severely impaired judgement Vital Signs (Past 24 Hours) Last Vital Signs Temp 36.4 C L 07/03/21 06:31 Pulse 72 07/03/21 06:32 Resp 18 07/03/21 06:31 BP 136/81 07/03/21 06:32 Pulse Ox 98 07/01/21 11:22 Results & Data ([facility]) Current Inpatient Medications Current Inpatient Medications: Current Inpatient Medications Acetaminophen (Acetaminophen 325 Mg Tab) 650 mg PO Q4H PRN PRN Reason: Headache or Minor Fever Stop: 07/31/21 11:39 Al Hydrox/Mg Hydrox/Simethicone (Aluminum/Magnesium Susp 30 Ml Udc) 30 ml PO Q4H PRN PRN Reason: GI Upset Stop: 07/31/21 11:39 Bismuth Subsalicylate (Bismuth Subsalicylate Liqd 236 Ml) 15 ml PO PRN PRN PRN Reason: Loose Stool Stop: 07/31/21 11:39 Diazepam (Diazepam 5 Mg Tablet) 5 mg PO BID PRN PRN Reason: Anxiety/Agitation Stop: 07/31/21 11:36 Hydroxyzine HCl (Hydroxyzine Hcl 25 Mg Tab) 50 mg PO HSZ PRN PRN Reason: Insomnia Stop: 07/31/21 11:40 Hydroxyzine HCl (Hydroxyzine Hcl 25 Mg Tab) 25 mg PO Q4H PRN PRN Reason: Anxiety Stop: 07/31/21 11:40 Magnesium Hydroxide (Magnesium Hydroxide Susp 30 Ml Udc) 30 ml PO DAILY PRN PRN Reason: Constipation Stop: 07/31/21 11:40 Neomycin/Polymyxin/Bacitracin (Neomycin/Polymyx/Bacitr Oint 15 Gm Tube) 1 appln EXT BID PRN PRN Reason: foot rash Stop: 07/31/21 11:41 Olanzapine (Olanzapine 10 Mg Tab) 10 mg PO BID RAUDEL Stop: 07/31/21 20:59 Last Admin: 07/03/21 09:00 Dose: Not Given Documented by: Sodium Chloride (Sodium Chloride 0.65% Na Soln 45 Ml ([place])) 1 - 2 sprays NA PRN PRN PRN Reason: Nasal Dryness/Congestion Stop: 07/31/21 11:40 Mental Health & Subst Abuse Tx Therapist Name of Therapist: None Manager Federal Name of Manager Federal: None Post Discharge Appointments Primary Care Physician Name Of Family Doctor: None (1) Psychosis Psychosis type: schizophrenia Schizophrenia type: unspecified Qualified Code(s): F20.9 - Schizophrenia, unspecified
[2021-07-04] MEDS: OLANZapine 10 MG TAB PO SCH (07:32)
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
== END 2021-07-04 14:00 | disposition home or self-care (01) | DRG 885 ==
LOC: ED 00:14 → 3S 06-30 18:42 → ED 06-30 19:05 → 3S 06-30 19:05